=== PATIENT | female | born 1950 | race Caucasian/White ===

== ENCOUNTER 2021-04-13 18:38 | Emergency (ER) | payer MEDICARE | END 2021-04-13 21:08 | disposition home or self-care (01) | LOC: CSHERS 18:38 | DX: L03.115 Cellulitis of right lower limb (principal); E78.5 Hyperlipidemia, unspecified; I10 Essential (primary) hypertension; M06.9 Rheumatoid arthritis, unspecified; Z79.899 Other long term (current) drug therapy ==

== ENCOUNTER 2022-06-02 09:58 | Emergency (ER) | payer MEDICARE ==
[2022-06-02] MEDS ORDERED: Azithromycin 250 MG TAB ONE (10:38)
[2022-06-02] MEDS ORDERED: Ketorolac Tromethamine 30 MG/ML VIAL ONE (10:46)
[2022-06-02] MEDS ORDERED: Dexamethasone 10 MG/ML VIAL ONE (10:46)
== END 2022-06-02 11:00 | disposition home or self-care (01) ==
LOC: CSHERS 09:58
DX: J32.9 Chronic sinusitis, unspecified (principal)
CPT/HCPCS: 96372; 99283; J1100; J1885

== ENCOUNTER 2022-09-11 15:18 | Emergency (ER) | payer MEDICARE | END 2022-09-11 17:25 | disposition home or self-care (01) | LOC: CSHERS 15:18 | DX: M71.21 Synovial cyst of popliteal space [Baker], right knee (principal); M79.661 Pain in right lower leg; M25.561 Pain in right knee; E78.5 Hyperlipidemia, unspecified; I10 Essential (primary) hypertension ==

== ENCOUNTER 2022-09-23 09:57 | Outpatient (CLI) | payer MEDICARE | END 2022-09-23 09:58 | disposition home or self-care (01) | LOC: CSHMAMMO 09:57 | PROVIDERS: ATTEND Internal Medicine | DX: Z12.31 Encounter for screening mammogram for malignant neoplasm of breast (principal); Z13.820 Encounter for screening for osteoporosis; Z78.0 Asymptomatic menopausal state; M85.851 Other specified disorders of bone density and structure, right thigh; M85.852 Other specified disorders of bone density and structure, left thigh; Z80.3 Family history of malignant neoplasm of breast | CPT/HCPCS: 77063; 77067; 77080 ==

== ENCOUNTER 2022-12-28 13:40 | Emergency (ER) | payer MEDICARE ==
[2022-12-28] MEDS ORDERED: Acetaminophen 500 MG TAB ONE (14:14)
[2022-12-28] MEDS ORDERED: Ketorolac Tromethamine 30 MG/ML VIAL ONE (14:14)
== END 2022-12-28 15:52 | disposition home or self-care (01) ==
LOC: CSHERS 13:40
DX: M71.21 Synovial cyst of popliteal space [Baker], right knee (principal); M17.11 Unilateral primary osteoarthritis, right knee; I10 Essential (primary) hypertension; E78.5 Hyperlipidemia, unspecified; Z79.899 Other long term (current) drug therapy
CPT/HCPCS: 96372; J1885

== ENCOUNTER 2023-01-16 13:06 | Emergency (ER) | payer MEDICARE | END 2023-01-16 14:11 | disposition home or self-care (01) | LOC: CSHERS 13:06 | DX: M25.561 Pain in right knee (principal); G89.29 Other chronic pain; I10 Essential (primary) hypertension; E78.5 Hyperlipidemia, unspecified | CPT/HCPCS: 99283 ==

== ENCOUNTER 2023-04-01 05:53 | Day surgery (SDC) | payer MEDICARE ==
[2023-03-02 13:38] VITALS: BMI 28.9
[2023-04-01] MEDS ORDERED: PROPOFOL 40 ML ONE (07:10)
[2023-04-01] MEDS ORDERED: Lidocaine 2% MPF 10 ML AMP (For Epidural Use) ONE (07:10)
== END 2023-04-01 08:42 | disposition home or self-care (01) ==
LOC: CSHSDC 05:53
PROVIDERS: ATTEND Internal Medicine Gastroenterology
PROC: 0DJD8ZZ Inspection of Lower Intestinal Tract, Via Natural or Artificial Opening Endoscopic (ICD-10-PCS; principal; 2023-04-01)
DX: Z12.11 Encounter for screening for malignant neoplasm of colon (principal); K57.30 Diverticulosis of large intestine without perforation or abscess without bleeding; I10 Essential (primary) hypertension; K64.9 Unspecified hemorrhoids; E78.5 Hyperlipidemia, unspecified; Z80.0 Family history of malignant neoplasm of digestive organs; Z86.010 Personal history of colon polyps; Z79.899 Other long term (current) drug therapy
CPT/HCPCS: J2704

== ENCOUNTER 2023-09-27 09:17 | Outpatient (CLI) | payer MEDICARE | END 2023-09-27 09:18 | disposition home or self-care (01) | LOC: CSHMAMMO 09:17 | PROVIDERS: ATTEND Internal Medicine | DX: Z12.31 Encounter for screening mammogram for malignant neoplasm of breast (principal); Z80.3 Family history of malignant neoplasm of breast; Z91.89 Other specified personal risk factors, not elsewhere classified | CPT/HCPCS: 77063; 77067 ==

== ENCOUNTER 2024-06-20 20:34 | Emergency (ER) | payer MEDICARE ==
[2024-06-20] MEDS ORDERED: Acetaminophen 500 MG TAB ONE (21:19)
[2024-06-20] MEDS ORDERED: Ketorolac Tromethamine 30 MG (1 mL) VIAL ONE (21:20)
[2024-06-20 22:22] LABS: Influenza A by NAA Not Detected (NotDetected); Influenza B by NAA Not Detected (NotDetected); SARS-CoV-2 NAA Rapid Test Not Detected (NotDetected)
== END 2024-06-20 22:26 | disposition home or self-care (01) ==
LOC: CSHERS 20:34
DX: B34.9 Viral infection, unspecified (principal); I10 Essential (primary) hypertension
CPT/HCPCS: 0240U; 71045; J1885; 96372

== ENCOUNTER 2024-09-15 14:34 | Outpatient (CLI) | payer MEDICARE | END 2024-09-15 14:35 | disposition home or self-care (01) | LOC: CSHRAD 14:34 | PROVIDERS: ATTEND Internal Medicine | DX: M25.512 Pain in left shoulder (principal); M79.642 Pain in left hand; M79.641 Pain in right hand ==

== ENCOUNTER 2024-11-01 12:36 | Outpatient (CLI) | payer MEDICARE | END 2024-11-01 12:37 | disposition home or self-care (01) | LOC: CSHMAMMO 12:36 | PROVIDERS: ATTEND Internal Medicine | DX: Z12.31 Encounter for screening mammogram for malignant neoplasm of breast (principal); Z80.3 Family history of malignant neoplasm of breast; Z91.89 Other specified personal risk factors, not elsewhere classified | CPT/HCPCS: 77063; 77067 ==

== ENCOUNTER 2024-11-16 13:39 | Outpatient (CLI) | payer MEDICARE | END 2024-11-16 13:40 | disposition home or self-care (01) | LOC: CSHULT 13:39 | PROVIDERS: ATTEND Internal Medicine | DX: I35.8 Other nonrheumatic aortic valve disorders (principal); R93.1 Abnormal findings on diagnostic imaging of heart and coronary circulation | CPT/HCPCS: 93306 ==

== ENCOUNTER 2024-12-21 13:35 | Outpatient (CLI) | payer MEDICARE | END 2024-12-21 13:36 | disposition home or self-care (01) | LOC: CSHMAMMO 13:35 | PROVIDERS: ATTEND Internal Medicine | DX: Z78.0 Asymptomatic menopausal state (principal); M85.89 Other specified disorders of bone density and structure, multiple sites | CPT/HCPCS: 77080 ==